=== PATIENT | female | born 1975 | race American Indian/Alaskan Native ===

== ENCOUNTER 2017-03-12 10:17 | Emergency (ER) | payer BC, OTHER ==
[2017-03-12 10:17] VITALS: BMI 38.4
[2017-03-12 10:28] VITALS: TEMP 98.1
[2017-03-12 11:55] VITALS: RESP 18
--- NOTE | 2017-03-12 11:55 | ED PDOC ---
Arrival/HPI - General Chief Complaint: Lower Extremity Problem/Injury Time Seen by Provider: 03/12/17 10:50 Historian: Patient - History of Present Illness Narrative History of Present Illness (Text): 03/12/17 11:05 Constance Armijo is a 41 year old female, who presents to the emergency department complaining of right leg pain since this morning. Patient reports [place] and today woke up with calf pain. She reports that the pain feels like a muscle cramp. Patient denies any trauma or swelling. No other complaint was made. Time/Duration: 1-3 hours Symptom Onset: Sudden Symptom Course: Unchanged Past Medical History - Provider Review Nursing Documentation Reviewed: Yes - Infectious Disease Hx of Infectious Diseases: None - Tetanus Immunization Tetanus Immunization: Unknown - Past Medical History Past Medical History: No Previous - Cardiac Hx Hypertension: Yes - Pulmonary Hx Asthma: Yes - Neurological Hx Neurological Disorder: No - HEENT Hx HEENT Disorder: No - Renal Hx Renal Disorder: No - Endocrine/Metabolic Hx Endocrine Disorders: No - Hematological/Oncological Hx Blood Disorders: No - Integumentary Hx Dermatological Disorder: No - Musculoskeletal/Rheumatological Hx Musculoskeletal Disorders: No - Gastrointestinal Hx Gastrointestinal Disorders: No - Genitourinary/Gynecological Hx Genitourinary Disorders: No - Psychiatric Hx Psychophysiologic Disorder: No Hx Substance Use: No - Past Surgical History Past Surgical History: No Previous - Surgical History Hx Eye Surgery: Yes (Lasik) - Anesthesia Hx Anesthesia: No - Suicidal Assessment Feels Threatened In Home Enviroment: No Family/Social History - Physician Review Nursing Documentation Reviewed: Yes Family/Social History: Unknown Family HX Smoking Status: Never Smoked Hx Alcohol Use: Yes Hx Substance Use: No Hx Substance Use Treatment: No Allergies/Home Meds Allergies/Adverse Reactions: Allergies shellfish derived Allergy (Verified 03/12/17 10:29) SHORTNESS OF BREATH Home Medications: Home Meds Medication Instructions Recorded Confirmed Unobtainable 03/12/17 03/12/17 Review of Systems - Review of Systems Constitutional: absent: Fevers Eyes: absent: Vision Changes Respiratory: absent: SOB Cardiovascular: absent: Chest Pain Gastrointestinal: absent: Abdominal Pain Genitourinary Female: absent: Dysuria, Frequency Musculoskeletal: Other (calf pain on right leg ). absent: Back Pain Neurological: absent: Headache, Dizziness Physical Exam Vital Signs Reviewed: Yes Vital Signs Temp Pulse Resp BP Pulse Ox 03/12/17 11:57 68 18 110/70 99 03/12/17 11:55 71 18 108/65 100 03/12/17 10:21 98.1 F 76 16 114/77 97 Temperature: Afebrile Blood Pressure: Normal Pulse: Regular Respiratory Rate: Normal Appearance: Positive for: Well-Appearing, Non-Toxic, Comfortable Pain Distress: None Mental Status: Positive for: Alert and Oriented X 3 - Systems Exam Head: Present: Atraumatic, Normocephalic Pupils: Present: PERRL Extroacular Muscles: Present: EOMI Conjunctiva: Present: Normal Respiratory/Chest: Present: Clear to Auscultation, Good Air Exchange. No: Respiratory Distress, Accessory Muscle Use Cardiovascular: Present: Regular Rate and Rhythm, Normal S1, S2. No: Murmurs Upper Extremity: Present: Normal Inspection, Normal ROM, NORMAL PULSES. No: Cyanosis, Edema Lower Extremity: Present: Normal Inspection, CALF TENDERNESS, NORMAL PULSES, Normal ROM. No: Edema, Cyanosis, Erythema, Deformity Neurological: Present: GCS=15, CN II-XII Intact, Speech Normal Skin: Present: Warm, Dry, Normal Color. No: Rashes Psychiatric: Present: Alert, Oriented x 3, Normal Insight, Normal Concentration Medical Decision Making ED Course and Treatment: 03/12/17 Impression: 41 year old female with right calf tenderness. Plan: -- Ultrasouns lower extremities -- Toradol -- Reassess and disposition Progress Notes: Ultrasound was negative for DVT. I have discussed the results and plan with the patient, who expresses understanding. Patient given the opportunity to ask question, all questions were answered and there is agreement with the plan to discharge the patient home. Patient is stable for discharge. - RAD Interpretation Radiology Orders: 03/12/17 10:50 DUPLEX LOWER EXTRM VEIN RIGHT [US] Stat Vocational Education Teacher: Radiologist - Medication Orders Current Medication Orders: Discontinued Medications Ketorolac Tromethamine (Toradol) 30 mg IM STAT STA Stop: 03/12/17 10:52 Last Admin: 03/12/17 11:00 Dose: 30 mg TATI Pain Assessment Document 03/12/17 11:00 SF (Rec: 03/12/17 11:00 [id number]) Pain Reassessment Is this a pain reassessment? Yes Sleep Is patient sleeping during reassessment? No Presence of Pain Presence of Pain Yes Location Left, Right or Bilateral Right Upper or Lower Lower Pain Location Body Site Leg IM Administration Charges Document 03/12/17 11:00 SF (Rec: 03/12/17 11:00 [id number]) Injection Site MAR Injection Site Left Deltoid Charges for Administration # of IM Administrations 1 - Scribe Statement The provider has reviewed the documentation as recorded by the Scribe Marci Flores Provider Scribe Attestation: All medical record entries made by the Scribe were at my direction and personally dictated by me. I have reviewed the chart and agree that the record accurately reflects my personal performance of the history, physical exam, medical decision making, and the department course for this patient. I have also personally directed, reviewed, and agree with the discharge instructions and disposition. Disposition/Present on Arrival - Present on Arrival Any Indicators Present on Arrival: No History of DVT/PE: No History of Uncontrolled Diabetes: No Urinary Catheter: No History of Decub. Ulcer: No History Surgical Site Infection Following: None - Disposition Have Diagnosis and Disposition been Completed?: Yes Diagnosis: Leg cramp Disposition: HOME/ ROUTINE Disposition Time: 11:54 Patient Plan: Discharge Condition: GOOD Discharge Instructions (ExitCare): Leg Cramps (ED), Muscle Cramp (ED) Additional Instructions: Follow-up with PMD within 2 days. Continue stretching leg. Return to Emergency department if condition worsens. Forms: [employer] (Italian)
[2017-03-12 11:59] VITALS: BP 110/70; PULSE 68; O2SAT 99
--- NOTE | 2017-03-12 14:14 | US ---
PROCEDURE: Right lower extremity venous US HISTORY: Leg pain and swelling. Evaluate for DVT. PHYSICIAN(S): Devin Richard M.D. TECHNIQUE: Duplex sonography and color-flow Doppler with graded compression were used to evaluate the deep venous system of the right lower extremity. FINDINGS: The visualized deep venous system of the right lower extremity is sonographically normal and compressible. Normal waveforms and augmentation are seen. There is no sonographic evidence for deep venous thrombosis in the visualized segments of the right lower extremity. IMPRESSION: 1. No sonographic evidence for deep venous thrombosis in the visualized segments of the right lower extremity.
== END 2017-03-12 12:00 | disposition home or self-care (01) ==
LOC: ED 10:17
DX: R25.2 Cramp and spasm (principal); I10 Essential (primary) hypertension
CPT/HCPCS: 93971; 96372; 99284; J1885

== ENCOUNTER 2017-03-14 23:24 | Emergency (ER) | payer BC ==
[2017-03-14 23:24] VITALS: BMI 38.4
[2017-03-15 00:12] VITALS: TEMP 98.1
[2017-03-15] MEDS ORDERED: DiphenhydrAMINE 50 mg/ml Inj IVP STA (00:18)
--- NOTE | 2017-03-15 00:23 | ED PDOC ---
Arrival/HPI - General Historian: Patient <Saúl Bui - Last Filed: 03/15/17 01:35> <Benson Roach - Last Filed: 03/15/17 01:41> - General Chief Complaint: Headache Time Seen by Provider: 03/15/17 00:15 - History of Present Illness Narrative History of Present Illness (Text): 03/15/17 00:19 41 y/o female, pmh including htn, nkda, c/o generalized headache x 3 days with no fall or trauma. Aching and throbbing, non-radiating, no change in vision, no dizziness, no neck pain, no numbness or tingling, no chest pain or shortness of breath, limited relief with the oral tylenol at home, no night sweat, no other medical or psychological complaints. (Saúl Bui) Past Medical History - Provider Review Nursing Documentation Reviewed: Yes - Infectious Disease Hx of Infectious Diseases: None - Tetanus Immunization Tetanus Immunization: Unknown - Past Medical History Past Medical History: No Previous - Cardiac Hx Hypertension: Yes - Pulmonary Hx Asthma: Yes - Neurological Hx Neurological Disorder: No - HEENT Hx HEENT Disorder: No - Renal Hx Renal Disorder: No - Endocrine/Metabolic Hx Endocrine Disorders: No - Hematological/Oncological Hx Blood Disorders: No - Integumentary Hx Dermatological Disorder: No - Musculoskeletal/Rheumatological Hx Musculoskeletal Disorders: No - Gastrointestinal Hx Gastrointestinal Disorders: No - Genitourinary/Gynecological Hx Genitourinary Disorders: No - Psychiatric Hx Psychophysiologic Disorder: No Hx Substance Use: No - Past Surgical History Past Surgical History: No Previous - Surgical History Hx Eye Surgery: Yes (Lasik) - Anesthesia Hx Anesthesia: No - Suicidal Assessment Feels Threatened In Home Enviroment: No <Saúl Bui - Last Filed: 03/15/17 01:35> Family/Social History - Physician Review Nursing Documentation Reviewed: Yes Family/Social History: Unknown Family HX Smoking Status: Never Smoked Hx Alcohol Use: Yes Hx Substance Use: No Hx Substance Use Treatment: No <Saúl Bui - Last Filed: 03/15/17 01:35> Allergies/Home Meds <Saúl Bui - Last Filed: 03/15/17 01:35> <Benson Roach - Last Filed: 03/15/17 01:41> Allergies/Adverse Reactions: Allergies shellfish derived Allergy (Verified 11/30/17 00:08) SHORTNESS OF BREATH Home Medications: Home Meds Medication Instructions Recorded Confirmed Famotidine/Ca Carb/Mag Hydrox 1 each PO DAILY 03/15/17 03/15/17 [Pepcid Complete Tablet Chew] Valsartan/Hydrochlorothiazide 1 tab PO DAILY 03/15/17 03/15/17 [Valsartan and Hydrochlorothiazide 12.5 mg-80 ] Review of Systems - Review of Systems Constitutional: absent: Fatigue, Fevers Eyes: absent: Vision Changes ENT: absent: Hearing Changes Respiratory: absent: SOB, Cough Cardiovascular: absent: Chest Pain Gastrointestinal: absent: Abdominal Pain, Nausea, Vomiting Skin: absent: Rash, Pruritis Neurological: Headache. absent: Dizziness, Focal Weakness, Gait Changes Psychiatric: absent: Anxiety, Depression, Suicidal Ideation <Saúl Bui Q - Last Filed: 03/15/17 01:35> Physical Exam Vital Signs Reviewed: Yes Temperature: Afebrile Blood Pressure: Normal Pulse: Regular Respiratory Rate: Normal Appearance: Positive for: Well-Appearing, Non-Toxic, Comfortable Pain Distress: Moderate Mental Status: Positive for: Alert and Oriented X 3 - Systems Exam Head: Present: Atraumatic, Normocephalic, Other (no temporal artery tenderness, no jaw claudication. ) Pupils: Present: PERRL Extroacular Muscles: Present: EOMI Conjunctiva: Present: Normal Mouth: Present: Moist Mucous Membranes Pharnyx: No: ERYTHEMA, EXUDATE, TONSILS ENLARGED Nose (External): No: Abrasion, Contusion, Laceration Nose (Internal): Present: Normal Inspection, No Active Bleeding. No: Rhinorrhea , Septal Hematoma, Epistaxis Neck: Present: Normal Range of Motion, Trachea Midline. No: MIDLINE TENDERNESS , Lymphadenopathy Respiratory/Chest: Present: Clear to Auscultation, Good Air Exchange. No: Respiratory Distress, Accessory Muscle Use, Wheezes, Retracting, Rhonchi Cardiovascular: Present: Regular Rate and Rhythm, Normal S1, S2. No: Murmurs Abdomen: Present: Normal Bowel Sounds. No: Tenderness, Distention, Peritoneal Signs Back: Present: Normal Inspection Upper Extremity: Present: Normal Inspection. No: Cyanosis, Edema Lower Extremity: Present: Normal Inspection. No: Edema Neurological: Present: GCS=15, CN II-XII Intact, Speech Normal, Motor Func Grossly Intact, Gait Normal, Memory Normal, Other (normal finger to nose, normal heel to neves test. ) Skin: Present: Warm, Dry, Normal Color. No: Rashes Psychiatric: Present: Alert, Oriented x 3, Normal Insight, Normal Concentration <Saúl Bui - Last Filed: 03/15/17 01:35> Vital Signs Temp Pulse Resp BP Pulse Ox 03/15/17 00:55 74 17 151/83 H 100 03/15/17 00:08 98.1 F 69 18 119/82 99 Medical Decision Making <Saúl Bui - Last Filed: 03/15/17 01:35> <Benson Roach - Last Filed: 03/15/17 01:41> ED Course and Treatment: 03/15/17 00:23 -labs/ua -IVF/reglan/benadryl/tylenol/oxygen 4L -observe and reassess 03/15/17 01:36 -Labs are non-significant except K+ 3.4 with potassium chloride 20meq po ordered. -UA show +UTI, macrobid ordered. -Pt. feels completely relief, wants to go home, no focal neurological deficits, will discharge home. -Discharge home with macrobid, tylenol, bed rest, follow up with your own pmd and neurologist within 2 days, return to the ER for any new or worsening signs or symptoms. (Saúl Bui) - Lab Interpretations Lab Results: 03/15/17 00:43 03/15/17 00:43 Lab Results 03/15/17 01:13: Urine Color Yellow, Urine Appearance Sl cloudy, Urine pH 6.0, Ur Specific [place] 1.015, Urine Protein Negative, Urine Glucose (UA) Negative, Urine Ketones Negative, Urine Blood Large H, Urine Nitrate Negative, Urine Bilirubin Negative, Urine Urobilinogen 0.2, Ur Leukocyte Esterase Small H, Urine RBC Pending, Urine WBC Pending 03/15/17 00:43: WBC 7.7, RBC 3.80, Hgb 11.3 L, Hct 34.2 L, MCV 90.0, MCH 29.7, MCHC 33.0, RDW 13.8, Plt Count 313, MPV 10.1, Gran % 51.2, Lymph % (Auto) 32.5, [place] % (Auto) 5.4, Eos % (Auto) 9.7 H, Baso % (Auto) 1.2, Gran # 3.95, Lymph # 2.5, [place] # 0.4, Eos # 0.8 H, Baso # 0.09 03/15/17 00:43: Sodium 137, Potassium 3.5 L, Chloride 101, Carbon Dioxide 31, Anion Gap 9 L, BUN 10, Creatinine 0.8, Est GFR ( Amer) > 60, Est GFR (Non -Af Amer) > 60, Random Glucose 113 H, Calcium 9.3, Total Bilirubin 0.5, AST 32, ALT 32, Alkaline Phosphatase 56, Total Protein 7.3, Albumin 4.0, Globulin 3.3, Albumin/Globulin Ratio 1.2 - Medication Orders Current Medication Orders: Discontinued Medications Acetaminophen (Tylenol 325mg Tab) 650 mg PO STAT STA Stop: 03/15/17 00:19 Last Admin: 03/15/17 00:48 Dose: 650 mg MAR Pain/Vitals Document 03/15/17 00:48 IT (Rec: 03/15/17 00:48 IT [id number]) Pain Reassessment Is This A Pain ReAssessment? No Sleep Is patient sleeping during reassessment? No Presence of Pain Presence of Pain Yes Location Left, Right or Bilateral Bilateral Pain Location Body [employer] Libr[employer] Diphenhydramine HCl (Benadryl) 25 mg IVP STAT STA Stop: 03/15/17 00:19 Last Admin: 03/15/17 00:48 Dose: 25 mg IVP Administration Document 03/15/17 00:48 IT (Rec: 03/15/17 00:48 IT [id number]) Charges for Administration # of IVP Administrations 1 Metoclopramide HCl (Reglan) 10 mg IVP STAT STA Stop: 03/15/17 00:19 Last Admin: 03/15/17 00:48 Dose: 10 mg IVP Administration Document 03/15/17 00:48 IT (Rec: 03/15/17 00:48 IT [id number]) Charges for Administration # of IVP Administrations 1 Nitrofurantoin Macrocrystals (Macrobid) 100 mg PO STAT STA Stop: 03/15/17 01:31 Potassium Chloride (K-Dur 20 Meq Er Tab) 20 meq PO STAT STA Stop: 03/15/17 01:25 - PA / [employer] / Resident Statement BETTINA has reviewed & agrees with the documentation as recorded. <Saúl Bui - Last Filed: 03/15/17 01:35> - PA / [employer] / Resident Statement BETTINA has reviewed & agrees with the documentation as recorded. BETTINA has examined the patient and agrees with the treatment plan. <Benson Roach - Last Filed: 03/15/17 01:41> Disposition/Present on Arrival - Present on Arrival Any Indicators Present on Arrival: No History of DVT/PE: No History of Uncontrolled Diabetes: No Urinary Catheter: No History of Decub. Ulcer: No History Surgical Site Infection Following: None - Disposition Have Diagnosis and Disposition been Completed?: Yes Disposition Time: 01:36 Patient Plan: Discharge <Saúl Bui - Last Filed: 03/15/17 01:35> <Benson Roach - Last Filed: 03/15/17 01:41> - Disposition Diagnosis: Headache, Hypokalemia, UTI (urinary tract infection) Disposition: HOME/ ROUTINE Patient Problems: Current Active Problems Problem Status Onset Headache Acute Hypokalemia Acute UTI (urinary tract infection) Acute Condition: IMPROVED Additional Instructions: -Discharge home with macrobid, tylenol, bed rest, follow up with your own pmd and neurologist within 2 days, return to the ER for any new or worsening signs or symptoms. Prescriptions: Acetaminophen [Tylenol 325mg tab] 2 tab PO QID PRN #30 tab PRN Reason: Other Nitrofurantoin Macrocrystals [Macrobid] 100 mg PO BID #14 cap Referrals: Alvino Whitehead, [Primary Care Provider] - Follow up with primary [facility] [Outside] - Follow up with primary Robi Monsalve MD [Staff Provider] - Follow up with primary Forms: WORK NOTE
[2017-03-15 00:56] VITALS: BP 151/83; PULSE 74; RESP 17; O2SAT 100
[2017-03-15 01:08] LABS: ALB/GLOB RATIO 1.2 (1.1-1.8); ALKALINE PHOSPHATASE 56 U/L (38-126); ALT/SGPT 32 U/L (7-56); AST/SGOT 32 U/L (14-36); BILIRUBIN,TOTAL 0.5 mg/dL (0.2-1.3); BLOOD UREA NITROGEN 10 mg/dL (7-21); CALCIUM 9.3 mg/dL (8.4-10.5); CARBON DIOXIDE 31 mmol/L (21-33); CHLORIDE 101 mmol/L (98-107); GFR AFRICAN-AMERICAN > 60; GLUCOSE,RANDOM 113 mg/dL (70-110); POTASSIUM 3.5 mmol/L (3.6-5.0); SODIUM 137 mmol/L (132-148); TOTAL PROTEIN 7.3 g/dL (5.8-8.3)
[2017-03-15 01:18] LABS: BASO # 0.09 K/mm3 (0.0-2.0); BASO % 1.2 % (0.0-3.0); EOS # 0.8 (0.0-0.7); EOS % 9.7 % (1.5-5.0); GRAN # 3.95 (1.4-6.5); GRAN % 51.2 % (50.0-68.0); HEMATOCRIT 34.2 % (36.0-48.0); LYMPH # 2.5 (1.2-3.4); LYMPH % 32.5 % (22.0-35.0); MEAN CORPUSCULAR HEMOGLOBIN 29.7 pg (25.0-35.0); MEAN PLATELET VOLUME 10.1 fl (7.0-11.0); MONO # 0.4 (0.1-0.6); MONO % 5.4 % (1.0-6.0); RED CELL DISTRIBUTION WIDTH 13.8 % (11.5-14.5); WHITE BLOOD COUNT 7.7 10^3/ul (4.5-11.0)
[2017-03-15 01:24] LABS: URINE BILIRUBIN NEGATIVE (NEGATIVE); URINE BLOOD LARGE (NEGATIVE); URINE GLUCOSE (UA) NEGATIVE (NEGATIVE); URINE KETONE NEGATIVE (NEGATIVE); URINE LEUKOCYTE ESTERASE SMALL Leu/uL (NEGATIVE); URINE PROTEIN NEGATIVE mg/dL (<30 mg/dL); URINE UROBILINOGEN 0.2 E.U./dL (<1 E.U./dL)
[2017-03-15] MEDS ORDERED: Potassium Chloride 20 mEq ER Tab PO STA (01:24)
[2017-03-15 01:28] LABS: URINE APPEARANCE SL CLOUDY (CLEAR); URINE COLOR YELLOW (YELLOW)
[2017-03-15 01:47] LABS: URINE AMORPHOUS SEDIMENT FEW; URINE BACTERIA RARE (NEG)
== END 2017-03-15 01:50 | disposition home or self-care (01) ==
LOC: ED 23:24
DX: N39.0 Urinary tract infection, site not specified (principal); E87.6 Hypokalemia; R51 Headache; I10 Essential (primary) hypertension
CPT/HCPCS: 80053; 81001; 85025; 87086; 96374; 96375; 99285; J1200; J2765

== ENCOUNTER 2017-07-31 01:39 | Emergency (ER) | payer BC ==
[2017-07-31 01:39] VITALS: BMI 38.4
[2017-07-31 02:05] VITALS: BP 123/75; PULSE 81; RESP 18; TEMP 98.1; O2SAT 100
[2017-07-31] MEDS ORDERED: Albuterol 0.083% Inhal Sol (2.5 mg/3 mL) UD INH STA (02:31)
--- NOTE | 2017-07-31 02:32 | ED PDOC ---
Arrival/HPI - General Chief Complaint: Respiratory Distress Time Seen by Provider: 07/31/17 02:22 Historian: Patient - History of Present Illness Narrative History of Present Illness (Text): 07/31/17 02:29 41 year old female, whose past medical history include, presents to the emergency department complaining of asthma flare up after sweeping. She states she used her puffer, inhaler, and also used flow vent, but still felt tightness and though she should come in and be evaluated. Patient states she never used Prednisone for her asthma. She states she feels better now, but still feels a little heaviness. Patient report shortness of breath, denies any fever, chills, chest pain, abdominal pain, nausea, vomiting, diarrhea, urinary symptoms, back pain, neck pain, headache, dizziness, or any other complaints. Time/Duration: Prior to Arrival Symptom Course: Unchanged Activities at Onset: Light Context: Home Past Medical History - Provider Review Nursing Documentation Reviewed: Yes - Infectious Disease Hx of Infectious Diseases: None - Tetanus Immunization Tetanus Immunization: Unknown - Past Medical History Past Medical History: No Previous - Cardiac Hx Hypertension: Yes - Pulmonary Hx Asthma: Yes - Neurological Hx Neurological Disorder: No - HEENT Hx HEENT Disorder: No - Renal Hx Renal Disorder: No - Endocrine/Metabolic Hx Endocrine Disorders: No - Hematological/Oncological Hx Blood Disorders: No - Integumentary Hx Dermatological Disorder: No - Musculoskeletal/Rheumatological Hx Musculoskeletal Disorders: No - Gastrointestinal Hx Gastrointestinal Disorders: No - Genitourinary/Gynecological Hx Genitourinary Disorders: No - Psychiatric Hx Psychophysiologic Disorder: No Hx Substance Use: No - Past Surgical History Past Surgical History: No Previous - Surgical History Hx Eye Surgery: Yes (Lasik) - Anesthesia Hx Anesthesia: No - Suicidal Assessment Feels Threatened In Home Enviroment: No Family/Social History - Physician Review Nursing Documentation Reviewed: Yes Family/Social History: No Known Family HX Smoking Status: Never Smoked Hx Alcohol Use: Yes Hx Substance Use: No Hx Substance Use Treatment: No Allergies/Home Meds Allergies/Adverse Reactions: Allergies shellfish derived Allergy (Verified 03/15/17 00:08) SHORTNESS OF BREATH Home Medications: Home Meds Medication Instructions Recorded Confirmed Famotidine/Ca Carb/Mag Hydrox 1 each PO DAILY 03/15/17 07/31/17 [Pepcid Complete Tablet Chew] Valsartan/Hydrochlorothiazide 1 tab PO DAILY 03/15/17 07/31/17 [Valsartan and Hydrochlorothiazide 12.5 mg-80 ] Review of Systems - Physician Review All systems were reviewed & negative as marked: Yes - Review of Systems Constitutional: absent: Fevers, Other (Chills) Respiratory: SOB Cardiovascular: Other (Chest tightness/ heaviness) Gastrointestinal: absent: Abdominal Pain, Diarrhea, Nausea, Vomiting Musculoskeletal: absent: Back Pain, Neck Pain Neurological: absent: Headache, Dizziness Physical Exam Vital Signs Reviewed: Yes Vital Signs Temp Pulse Resp BP Pulse Ox 07/31/17 02:11 18 07/31/17 02:04 98.1 F 81 18 123/75 100 Temperature: Afebrile Blood Pressure: Normal Pulse: Regular Respiratory Rate: Normal Appearance: Positive for: Well-Appearing, Non-Toxic, Comfortable Pain Distress: None Mental Status: Positive for: Alert and Oriented X 3 - Systems Exam Head: Present: Atraumatic, Normocephalic Pupils: Present: PERRL Extroacular Muscles: Present: EOMI Conjunctiva: Present: Normal Mouth: Present: Moist Mucous Membranes Neck: Present: Normal Range of Motion Respiratory/Chest: Present: Clear to Auscultation, Good Air Exchange. No: Respiratory Distress, Accessory Muscle Use, Wheezes Cardiovascular: Present: Regular Rate and Rhythm, Normal S1, S2. No: Murmurs Abdomen: No: Tenderness, Distention, Peritoneal Signs Back: Present: Normal Inspection Upper Extremity: Present: Normal Inspection. No: Cyanosis, Edema Lower Extremity: Present: Normal Inspection. No: Edema Neurological: Present: GCS=15, CN II-XII Intact, Speech Normal Skin: Present: Warm, Dry, Normal Color. No: Rashes Psychiatric: Present: Alert, Oriented x 3, Normal Insight, Normal Concentration Medical Decision Making ED Course and Treatment: 07/31/17 02:20 Impression: 41 year old female presents complaining of asthma triggered by sweeping. She reports tightness and heaviness. Plan: -- VBG Shock Panel -- Labs -- EKG -- Chest X-Ray -- Albuterol -- Blood Culture -- Reassess and disposition Progress Notes: 07/31/17 03:20 CXR Impression: As read by me, NAD EKG: Ordered, reviewed, and independently interpreted the EKG. Rate : 83 BPM Rhythm : NSR Interpretation : No ST-segment elevations or depressions, no T-wave inversions, normal intervals. Comparison : No previous EKG for comparison. 07/31/17 03:51 On reevaluation the patient feels better and is in no acute distress. I have discussed the results and plan with the patient, who expresses understanding. Patient given the opportunity to ask question, all questions were answered and there is agreement with the plan to discharge the patient home. Patient is stable for discharge. Patient was instructed to follow up with physician/clinic in 1-2 days or return if symptoms persist/worsen or new concerning symptoms arise. - Lab Interpretations Lab Results: 07/31/17 02:37 07/31/17 02:37 Lab Results 07/31/17 02:37: Sodium 138, Chloride 103, Potassium 3.5 L, Carbon Dioxide 25, Anion Gap 14, BUN 14, Creatinine 0.9, Est GFR ( Amer) > 60, Est GFR (Non- Af Amer) > 60, Random Glucose 111 H, Calcium 10.0, Total Bilirubin 0.2, AST 23, ALT 28, Alkaline Phosphatase 63, Total Protein 7.2, Albumin 4.1, Globulin 3.1, Albumin/Globulin Ratio 1.3 07/31/17 02:37: pO2 48, VBG pH 7.36, VBG pCO2 48.0, VBG HCO3 27.1, VBG Total CO2 28.6 H, VBG O2 Sat (Calc) 86.9 H, VBG Base Excess 1.0, VBG Potassium 3.2 L, Sodium 137.0, Chloride 105.0, Glucose 112 H, Lactate 1.1, FiO2 21.0, Venous Blood Potassium 3.2 L 07/31/17 02:37: WBC 9.5 D, RBC 3.84, Hgb 11.6 L, Hct 33.6 L, MCV 87.5, MCH 30.2 , MCHC 34.5, RDW 13.7, Plt Count 320, MPV 10.0, Gran % 58.4, Lymph % (Auto) 29.1 , P[place] % (Auto) 4.0, Eos % (Auto) 7.8 H, Baso % (Auto) 0.7, Gran # 5.51, Lymph # (Auto) 2.8, P[place] # (Auto) 0.4, Eos # (Auto) 0.7, Baso # (Auto) 0.07 07/31/17 02:34: PT 12.7 H, INR 1.11 H, D-Dimer, Quantitative < 200 I have reviewed the lab results: Yes - RAD Interpretation Radiology Orders: 07/31/17 02:22 CHEST PORTABLE [RAD] Stat - EKG Interpretation Interpreted by ED Physician: Yes Type: 12 lead EKG - Medication Orders Current Medication Orders: Discontinued Medications Albuterol Sulfate (Albuterol 0.083% Inhal Viviane (2.5 Mg/3 Ml) Ud) 7.5 mg INH STAT STA Stop: 07/31/17 02:32 Last Admin: 07/31/17 02:52 Dose: 7.5 mg - Scribe Statement The provider has reviewed the documentation as recorded by the Karine Dai Provider Scribe Attestation: All medical record entries made by the Josieibtania were at my direction and personally dictated by me. I have reviewed the chart and agree that the record accurately reflects my personal performance of the history, physical exam, medical decision making, and the department course for this patient. I have also personally directed, reviewed, and agree with the discharge instructions and disposition. Disposition/Present on Arrival - Present on Arrival Any Indicators Present on Arrival: No History of DVT/PE: No History of Uncontrolled Diabetes: No Urinary Catheter: No History of Decub. Ulcer: No History Surgical Site Infection Following: None - Disposition Have Diagnosis and Disposition been Completed?: Yes Diagnosis: Exacerbation of asthma Disposition: HOME/ ROUTINE Disposition Time: 03:49 Patient Plan: Discharge Patient Problems: Current Active Problems Problem Status Onset Exacerbation of asthma Acute Condition: GOOD Discharge Instructions (ExitCare): Asthma, Adult (DC) Additional Instructions: Constance - Take the medrol dose pack, first dose later this morning. Follow up with your doctor. Return to us if problems or worse in any way. Tino- Dr. Cal Pena Prescriptions: Methylprednisolone [Medrol Dose Pack (21 tabs)] 4 mg PO DAILY #21 mg Forms: [employer] ([place]ian), WORK NOTE
[2017-07-31 02:59] LABS: BASO # 0.07 K/mm3 (0.0-2.0); BASO % 0.7 % (0.0-3.0); EOS # 0.7 (0.0-0.7); EOS % 7.8 % (1.5-5.0); GRAN # 5.51 (1.4-6.5); GRAN % 58.4 % (50.0-68.0); HEMOGLOBIN 11.6 g/dL (12.0-16.0); LYMPH # 2.8 (1.2-3.4); LYMPH % 29.1 % (22.0-35.0); MEAN CELL VOLUME 87.5 fl (80.0-105.0); MEAN CORPUSCULAR HEMOGLOBIN 30.2 pg (25.0-35.0); MEAN CORPUSCULAR HGB CONC 34.5 g/dl (31.0-37.0); MONO # 0.4 (0.1-0.6); RBC 3.84 10^6/uL (3.5-6.1); RED CELL DISTRIBUTION WIDTH 13.7 % (11.5-14.5); WHITE BLOOD COUNT 9.5 10^3/ul (4.5-11.0)
[2017-07-31 03:09] LABS: ALB/GLOB RATIO 1.3 (1.1-1.8); ALBUMIN 4.1 g/dL (3.0-4.8); ALT/SGPT 28 U/L (7-56); AST/SGOT 23 U/L (14-36); BLOOD UREA NITROGEN 14 mg/dL (7-21); GFR AFRICAN-AMERICAN > 60; GFR NON-AFRICAN AMERICAN > 60
[2017-07-31 03:10] LABS: VENOUS BLOOD GAS PO2 48 mm/Hg (30-55); VENOUS BLOOD PH 7.36 (7.32-7.43)
[2017-07-31 03:14] LABS: D DIMER < 200 ng/mL (0-243); INR 1.11 (0.93-1.08); PROTHROMBIN TIME 12.7 SECONDS (9.4-12.5)
--- NOTE | 2017-07-31 08:17 | RAD ---
HISTORY: Dyspnea COMPARISON: Comparison chest 06/03/2015 FINDINGS: LUNGS: Suspect minor right basilar atelectasis. PLEURA: No significant pleural effusion identified, no pneumothorax apparent. CARDIOVASCULAR: Normal. OSSEOUS STRUCTURES: No significant abnormalities. VISUALIZED UPPER ABDOMEN: Normal. OTHER FINDINGS: None. IMPRESSION: Suspect minor right basilar atelectasis.
--- NOTE | 2017-07-31 21:35 | CARD ---
APPROVED REPORT EKG Measurement Heart [id number] <Conclusion> Normal sinus rhythm Incomplete right bundle branch block Borderline ECG
== END 2017-07-31 04:04 | disposition home or self-care (01) ==
LOC: ED 01:39
DX: J45.901 Unspecified asthma with (acute) exacerbation (principal); I10 Essential (primary) hypertension